=== PATIENT | female | born 1940 | race Caucasian/White ===

== ENCOUNTER 2017-11-05 11:45 | Emergency (ER) | payer MEDICARE, SELFPAY ==
[~2017-11-05] VITALS: Ht 162.6 cm; Wt 64.4 kg
[~2017-11-05 11:45] MED LIST: ALBU90OI6 INH; Amaryl4 MG PO; BUDE6HFA INH; CALGLU500; CENTRUM SILVER1 EAC2 PO; CENTRUM SILVER1 EAC3; CHOL10002 PO; Centrum Silver1 EAC1 PO; Cipro500 MG PO; DULO60 PO; ERGO400 PO; Flagyl500 MG PO; GABA300 PO; GABA300T24 PO; GLIM4 PO; HYDR1TAB94 PO; INSULANI SC; INSULANPEN SC; LISI5 PO; METF500 PO; MULVITA; Milk Of Ma400 MG/5 M PO; Multivitamin1 EAC1 PO; Norco 5-325 Ta1 EACH PO; OMEP20ER; OMEP20ER PO; ONDA8 PO; OXYC5 PO; Omeprazole20 M1 PO; SERT100 PO; VITAMIN B12-FO1 EACH PO; Ventolin Soln3 ML INH; Vitamin C100 MG PO; Zofran Odt4 MG SL
[2017-11-05 13:49] LABS: Hematocrit 38.8 % (33.0-51.0); Mean Corpuscular HGB 31.9 pg (26.0-34.0); Mean Corpuscular HGB Conc 33.5 g/dL (31.5-36.5); Mean Platelet Volume 9.4 fL (9.1-12.4); Platelet Count 181 K/mm3 (150-400); RDW Coefficient Variation 15.8 % (11.7-14.2); RDW Standard Deviation 54.4 fL (35.1-46.3); Red Blood Cell Count 4.07 M/mm3 (3.80-5.20); White Blood Cell Count 17.63 K/mm3 (4.00-11.30)
[2017-11-05 13:51] LABS: Mean Corpuscular Volume 95 fL (80-100)
[2017-11-05 14:11] LABS: Alanine Aminotransfer (ALT/SGP 14 U/L (12-78); Albumin, Blood 3.9 g/dL (3.4-5.0); Alk Phos 105 U/L (50-136); Anion Gap 14 mmol/L (6-16); Aspartate Aminotrans (AST/SGOT 22 U/L (12-37); Bilirubin, Total 0.9 mg/dL (0.1-1.0); Blood Urea Nitrogen 13 mg/dL (8-24); Bun/Creatinine Ratio 18.1 (12.0-20.0); CO2, Blood 22 mmol/L (21-32); Calcium, Blood 9.6 mg/dL (8.5-10.1); Chloride, Blood 102 mmol/L (98-108); Creatinine, Blood 0.72 mg/dL (0.40-1.00); Globulin, Blood 3.9 g/dL (2.2-4.0); Glomerular Filtration Rate >60 (60-); Glucose, Blood 180 mg/dL (70-99); Sodium, Blood 138 mmol/L (136-145); Total Protein, Blood 7.8 g/dL (6.4-8.2)
[2017-11-05 14:23] LABS: BASOPHILS PERCENT MAN 0 % (0-2); EOSINOPHILS PERCENT MAN 0 % (0-6); LYMPHOCYTES PERCENT MAN 4 % (21-46); MONOCYTES PERCENT MAN 0 % (4-13); NEUTROPHILS ABSOLUTE MAN 16.92 K/mm3 (1.96-9.15); SEG NEUTROPHILS PERCENT MAN 96 % (41-73); TOTAL CELLS COUNTED 100
[2017-11-05 14:27] LABS: Bilirubin, Urine Neg (Neg); Blood, Urine Neg (Neg); Glucose Qualitative, Urine Neg (Neg); Ketones, Urine 4+ (Neg); Leukocyte Esterase, Urine 1+ (Neg); Nitrite, Urine Neg (Neg); Protein, Urine 2+ (Neg); Urobilinogen, Urine NORM (Normal)
[2017-11-05 14:34] LABS: Appearance, Urine Clear (Clear); Color, Urine Yellow (P-Yellow)
[2017-11-05 14:36] LABS: Bacteria Few /hpf; Mucus Light (0-Heavy); Squamous Epithelial Cells Few /hpf (Few)
[2017-11-05] MEDS ORDERED: PHENERGAN25 MG PR (19:16)
[2017-11-05] MEDS ORDERED: Zofran Odt4 MG PO (19:16)
[2018-07-28] MEDS ORDERED: PROC5 PO (11:00)
[2018-07-28] MEDS ORDERED: CLOT10 MT (11:00)
[2018-07-29] MEDS ORDERED: Ferrous Sulfat325 M2 PO (15:14)
== END 2017-11-05 19:34 | disposition home or self-care (01) ==
LOC: ER 11:45
PROVIDERS: Emergency Medicine
DX: R11.2 Nausea with vomiting, unspecified (principal); T45.1X5A Adverse effect of antineoplastic and immunosuppressive drugs, initial encounter; K29.70 Gastritis, unspecified, without bleeding; E86.0 Dehydration; E11.9 Type 2 diabetes mellitus without complications; C19 Malignant neoplasm of rectosigmoid junction; Z88.6 Allergy status to analgesic agent; Z88.5 Allergy status to narcotic agent; Z79.4 Long term (current) use of insulin; Z79.899 Other long term (current) drug therapy; Z90.49 Acquired absence of other specified parts of digestive tract; Z90.710 Acquired absence of both cervix and uterus
CPT/HCPCS: 36415; 71046; 74177; 80053; 81001; 83605; 85025; 87040; 87086; 96361; 96374; 96375; 99284; J2405; J2550; J7030; Q9967

== ENCOUNTER 2019-08-14 07:39 | Day surgery (SDC) | payer MEDICARE, OTHER ==
[~2019-08-14] VITALS: Ht 160 cm; Wt 68.8 kg
[~2019-08-14 07:39] MED LIST changes: +CLOT10 MT; +Ferrous Sulfat325 M2 PO; +PHENERGAN25 MG PR; +PROC5 PO; +Zofran Odt4 MG PO
--- NOTE | 2019-08-14 10:48 | NUR ---
08/14/19 1048 Isreal Deleon DISCHARGE INSTRUCTIONS REVIEWED WITH PT AND DAUGHTER. PT INSTRUCTED SHE WOULD ONLY NEED PRN FOLLOW UP. SHE AGREES WITH THIS PLAN AND VERBALIZES UNDERSTANDING. VSS. TOLERATING PO FLUIDS WELL.
== END 2019-08-14 10:09 | disposition home or self-care (01) ==
LOC: ORSCSDS 07:39
PROVIDERS: Internal Medicine Gastroenterology
PROC: 0DJD8ZZ Inspection of Lower Intestinal Tract, Via Natural or Artificial Opening Endoscopic (ICD-10-PCS; principal; 2019-08-14 09:00)
DX: Z12.11 Encounter for screening for malignant neoplasm of colon (principal); Z85.038 Personal history of other malignant neoplasm of large intestine; K57.30 Diverticulosis of large intestine without perforation or abscess without bleeding; G47.30 Sleep apnea, unspecified; E11.9 Type 2 diabetes mellitus without complications; Z79.899 Other long term (current) drug therapy
CPT/HCPCS: 82947; J0330; J0461; J2405; J2704; J7120

== ENCOUNTER 2022-01-24 13:50 | Day surgery (SDC) | payer OTHER ==
[2022-01-24] MEDS ORDERED: LEVSOD75 PO (15:42)
[2022-01-24] MEDS ORDERED: POTA10T PO (15:43)
[2022-01-24] MEDS ORDERED: METF500 PO (15:43)
[2022-01-24] MEDS ORDERED: FURO20 PO (15:43)
[2022-01-24] MEDS ORDERED: OLAN2.5 PO (15:44)
[2022-01-24] MEDS ORDERED: XARELTO20 MG PO (15:45)
[2022-01-24] MEDS ORDERED: ALEN70 PO (15:45)
[2022-01-24] MEDS ORDERED: TRESIBA FL200 UNIT/2 SC (15:46)
== END 2022-01-24 18:28 | disposition home or self-care (01) ==
LOC: ATC 13:50
DX: C94.6 Myelodysplastic disease, not elsewhere classified (principal)
CPT/HCPCS: 36415; 86850; 86900; 86901; 86923; J1642; J7040; P9016

== ENCOUNTER 2022-01-29 21:03 | Inpatient (IN) | payer OTHER ==
[~2022-01-29] VITALS: Ht 160 cm; Wt 64.9 kg
[~2022-01-29 21:03] MED LIST changes: +ALEN70 PO; +FURO20 PO; +LEVSOD75 PO; +OLAN2.5 PO; +POTA10T PO; +TRESIBA FL200 UNIT/2 SC; +XARELTO20 MG PO
[2022-01-29 21:22] LABS: BASOPHILS ABSOLUTE AUTO 0.01 K/mm3 (0.00-0.23); BASOPHILS PERCENT AUTO 0 % (0-2); EOSINOPHILS ABSOLUTE AUTO 0.05 K/mm3 (0.00-0.68); EOSINOPHILS PERCENT AUTO 1 % (0-6); Hematocrit 28.4 % (33.0-51.0); Hemoglobin 8.5 g/dL (11.5-16.0); IMMATURE GRAN ABSOLUTE AUTO 0.05 K/mm3 (0.00-0.10); IMMATURE GRAN PERCENT AUTO 1 % (0-1); LYMPHOCYTES ABSOLUTE AUTO 1.32 K/mm3 (0.84-5.20); LYMPHOCYTES PERCENT AUTO 25 % (21-46); MONOCYTES ABSOLUTE AUTO 1.16 K/mm3 (0.16-1.47); MONOCYTES PERCENT AUTO 22 % (4-13); Mean Corpuscular HGB 28.5 pg (26.0-34.0); Mean Corpuscular HGB Conc 29.9 g/dL (31.5-36.5); Mean Corpuscular Volume 95 fL (80-100); Mean Platelet Volume 10.2 fL (9.1-12.4); NEUTROPHILS ABSOLUTE AUTO 2.77 K/mm3 (1.96-9.15); NEUTROPHILS PERCENT AUTO 52 % (41-73); NRBC ABSOLUTE 0.07 K/mm3 (0.00-0.02); NRBC Auto 1.3 /100 WBC (0.0-0.2); Platelet Count 189 K/mm3 (150-400); RDW Coefficient Variation 21.7 % (11.7-14.2); RDW Standard Deviation 73.6 fL (35.1-46.3); Red Blood Cell Count 2.98 M/mm3 (3.80-5.20); White Blood Cell Count 5.36 K/mm3 (4.00-11.30)
[2022-01-29 21:53] LABS: Albumin, Blood 2.5 g/dL (3.4-5.0); Albumin/Globulin Ratio 0.6 (0.8-1.8); Bun/Creatinine Ratio 19.4 (12.0-20.0); Calcium, Blood 8.4 mg/dL (8.5-10.1); Creatinine, Blood 1.65 mg/dL (0.40-1.00); Globulin, Blood 4.5 g/dL (2.2-4.0); Potassium, Blood 5.9 mmol/L (3.5-5.5)
[2022-01-29 22:24] LABS: PCO2 Venous 36.7 mmHg (38-42); pH Blood Venous 7.42 (7.34-7.37)
[2022-01-29 22:25] LABS: Base Excess Venous -0.6 mmol/L; Bicarbonate Venous 24.1 mmol/L (24.0-30.0); PO2 Venous 135 mmHg (38-42)
[2022-01-29 22:56] LABS: Influenza A, PCR NEGATIVE (NEGATIVE); Influenza B, PCR NEGATIVE (NEGATIVE); Resp Syncytial Virus, PCR NEGATIVE (NEGATIVE); SARS-Cov-2 (COVID-19) PCR, MMC NEGATIVE (NEGATIVE)
[2022-01-30 01:15] LABS: BASOPHILS ABSOLUTE AUTO 0.02 K/mm3 (0.00-0.23); BASOPHILS PERCENT AUTO 1 % (0-2); EOSINOPHILS ABSOLUTE AUTO 0.01 K/mm3 (0.00-0.68); EOSINOPHILS PERCENT AUTO 0 % (0-6); Hematocrit 26.9 % (33.0-51.0); Hemoglobin 8.2 g/dL (11.5-16.0); IMMATURE GRAN ABSOLUTE AUTO 0.04 K/mm3 (0.00-0.10); IMMATURE GRAN PERCENT AUTO 1 % (0-1); LYMPHOCYTES PERCENT AUTO 17 % (21-46); MONOCYTES ABSOLUTE AUTO 0.56 K/mm3 (0.16-1.47); MONOCYTES PERCENT AUTO 14 % (4-13); Mean Corpuscular HGB 28.6 pg (26.0-34.0); Mean Corpuscular HGB Conc 30.5 g/dL (31.5-36.5); Mean Corpuscular Volume 94 fL (80-100); NEUTROPHILS PERCENT AUTO 68 % (41-73); NRBC ABSOLUTE 0.05 K/mm3 (0.00-0.02); NRBC Auto 1.2 /100 WBC (0.0-0.2); Platelet Count 177 K/mm3 (150-400); RDW Standard Deviation 73.5 fL (35.1-46.3); Red Blood Cell Count 2.87 M/mm3 (3.80-5.20); White Blood Cell Count 4.13 K/mm3 (4.00-11.30)
[2022-01-30 01:40] LABS: Bun/Creatinine Ratio 19.9 (12.0-20.0); Calcium, Blood 8.4 mg/dL (8.5-10.1); Creatinine, Blood 1.71 mg/dL (0.40-1.00); Potassium, Blood 5.9 mmol/L (3.5-5.5)
--- NOTE | 2022-01-30 06:55 | NUR ---
NOC SHIFT SUMMARY PT ARRIVED TO UNIT @ 0031 FROM ED WITH DAUGHTER ROMA AND ED STAFF. SLID TO STRETCHER WITH STAFF ASSIST. CPAP SET UP PER RT. VITALS OBTAINED. PT ORIENTED TO ROOM AND CALL LIGHT. NO COMPLAINTS OF PAIN. SPOKE WITH - DR OLIVO OVERNIGHT REGARDING LOW MAPS OF 53-59. OTHER VSS. PT STATES ASYMPTOMATIC BUT COLD SWEAT NOTED BY THIS RN. ORDERS RECEIVED FOR 250 BOLUS X2, AND MIDODRINE X1 (SEE EMAR FOR DETAILS). IMPROVEMENT THIS AM TO MAP OF 67. 0600 UPDATE - PT HAD NOT VOIDED THIS SHIFT. BLADDER SCAN SHOWS 850ML. NOTIFIED DR. OLIVO AND DAVIS CATHETER PLACED. PT TOLERATED WELL.
--- NOTE | 2022-01-30 08:30 | NUR ---
AM ASSESSMENT: Pt laying in bed with CPAP in place. Pt A/O x4 at this time. Denies pain, states that she is feeling some SOB but that this has improved since last noc. Requesting to come off of CPAP. Placed on 4L N/C. Tolerating well. LS with coarse and crackles throughout. HR reg. BT positive. Abd very distended with ascities noted. +2 edema noted to BLE. Rodriguez cath draining dark, iris urine. VSS. Call light in reach. Will continue to monitor.
[2022-01-30 09:52] LABS: International Normalized Ratio 1.16; Prothrombin Time Results 12.1 Sec (9.7-11.5)
--- NOTE | 2022-01-30 18:09 | NUR ---
SHIFT SUMMARY: Pt resting in bed. Denies needs. Visitor at bedside. Pt has done well this shift. Was able to titrate O2 down to RA. At RA Pt sats were at 90-92%. Placed back on 2L per NC and pt Biox 96-100%. States she is more comfortable with oxygen on. Pt had a paracentisis today with approx. 5L removed. Albumin given per orders. VSS throughout shift. Rodriguez cath continued to drain iris urine. Pt had multiple unformed, incontinent BM's that were garduno/brown in color. No other changes this shift. Will report to night RN.
[2022-01-31 04:42] LABS: BASOPHILS PERCENT AUTO 0 % (0-2); EOSINOPHILS PERCENT AUTO 0 % (0-6); Hematocrit 24.9 % (33.0-51.0); Hemoglobin 7.6 g/dL (11.5-16.0); IMMATURE GRAN ABSOLUTE AUTO 0.06 K/mm3 (0.00-0.10); IMMATURE GRAN PERCENT AUTO 2 % (0-1); LYMPHOCYTES ABSOLUTE AUTO 0.48 K/mm3 (0.84-5.20); LYMPHOCYTES PERCENT AUTO 14 % (21-46); MONOCYTES ABSOLUTE AUTO 0.42 K/mm3 (0.16-1.47); MONOCYTES PERCENT AUTO 12 % (4-13); Mean Corpuscular HGB 28.4 pg (26.0-34.0); Mean Corpuscular HGB Conc 30.5 g/dL (31.5-36.5); Mean Corpuscular Volume 93 fL (80-100); Mean Platelet Volume 10.1 fL (9.1-12.4); NEUTROPHILS ABSOLUTE AUTO 2.44 K/mm3 (1.96-9.15); NEUTROPHILS PERCENT AUTO 72 % (41-73); NRBC ABSOLUTE 0.07 K/mm3 (0.00-0.02); NRBC Auto 2.1 /100 WBC (0.0-0.2); Platelet Count 147 K/mm3 (150-400); RDW Coefficient Variation 21.8 % (11.7-14.2); RDW Standard Deviation 72.6 fL (35.1-46.3); Red Blood Cell Count 2.68 M/mm3 (3.80-5.20)
[2022-01-31 05:14] LABS: Bun/Creatinine Ratio 29.9 (12.0-20.0); Calcium, Blood 8.5 mg/dL (8.5-10.1); Creatinine, Blood 1.37 mg/dL (0.40-1.00); Potassium, Blood 4.9 mmol/L (3.5-5.5); Thyroxine (T4) 7.4 ug/dL (4.8-13.9)
--- NOTE | 2022-01-31 05:45 | NUR ---
NOC SHIFT SUMMARY PT SLEPT WELL OVERNIGHT, ORIENTED X4. VSS PER PT TREND. ON 2L NC. DAVIS DRAINING DARK YELLOW/BOGDAN URINE. ADEQUATE OUTPUT. PARACENTESIS SITE CDI WITH BANDAID IN PLACE. SR ON TELEMETRY. NO COMPLAINTS OF PAIN. WILL CONTINUE TO MONITOR AND PASS ON TO DAY RN
--- NOTE | 2022-01-31 09:49 | NUR ---
PT PLACED ON BIPAP WITH 2L DUE COMPLAINTS OF SOB, INCREASED WORK OF BREATHING AND CO OF BECOMING TIRED. RT NOTIFIED AND THEN CAME IN TO ASSESS BIPAP SETTINGS. PT HR DECREASED AND SATS IMPROVED AFTER APPLICATION.
--- NOTE | 2022-01-31 20:46 | NUR ---
ASSUMPTION OF CARE: PATIENT WATCHING TV WITH O2 SATS >94% ON 2L NC. DENIES SOB OR CHEST PAIN, DENIES NEEDS AT THIS TIME. DAVIS DRAINING YELLOW URINE TO GRAVITY. DAVIS CLAMPED AT 2030 TO INITIATE BLADDER TRAINING IN ANTICIPATION OF D/C'ING IN A DAY OR TWO. MEDICATED PER EMAR WITH PLANS TO WEAR CPAP FOR SLEEP.
[2022-02-01 04:13] LABS: Hematocrit 26.4 % (33.0-51.0); Hemoglobin 8.1 g/dL (11.5-16.0); Mean Corpuscular HGB 28.2 pg (26.0-34.0); Mean Corpuscular HGB Conc 30.7 g/dL (31.5-36.5); Mean Corpuscular Volume 92 fL (80-100); Mean Platelet Volume 10.1 fL (9.1-12.4); NRBC ABSOLUTE 0.07 K/mm3 (0.00-0.02); NRBC Auto 1.6 /100 WBC (0.0-0.2); Platelet Count 143 K/mm3 (150-400); RDW Coefficient Variation 21.9 % (11.7-14.2); RDW Standard Deviation 71.5 fL (35.1-46.3); Red Blood Cell Count 2.87 M/mm3 (3.80-5.20); White Blood Cell Count 4.48 K/mm3 (4.00-11.30)
[2022-02-01 04:28] LABS: Bun/Creatinine Ratio 33.3 (12.0-20.0); Calcium, Blood 8.4 mg/dL (8.5-10.1); Creatinine, Blood 1.29 mg/dL (0.40-1.00); Potassium, Blood 4.8 mmol/L (3.5-5.5)
--- NOTE | 2022-02-01 05:41 | NUR ---
SHIFT SUMMARY: PATIENT MAINTAINED O2 SATS >94% ON 2L NC. DENIES CHEST PAIN. HAS OCCASIONAL SOB WITH COUGHING SPELLS. INITIATED BLADDER TRAINING - OUTPUT ~200 ML Q2 HRS. PATIENT IN BED WITH BIPAP IN PLACE WITH 2L BLEED IN. BED LOW AND CALL LIGHT IN REACH. PATIENT PLEASANT AND COOPERATIVE WITH CARE. NO ADVERSE EVENTS THIS SHIFT. WILL CONTINUE TO MONITOR AND REPORT TO ONCOMING RN.
--- NOTE | 2022-02-01 17:18 | NUR ---
SHIFT SUMMARY NO ACUTE CHANGES NOTED THROUGH THE DAY. PT HAS BEEN AWAKE, A&O X4. VSS, PT WAS ABLE TO AMBULATE IN THE [place]INTERS X1 WITH STAND BY ASSISTANCE USING FWW & 2L O2 VIA NC, PT THEN SAT AT THE BEDSIDE FOR APPROX 1 HOUR. AFTER RESTING PT WAS BACK UP TO BEDSIDE CHAIR FOR DINNER. LUNGS REMAIN COARSE/WHEEZE BILATERAL, NONPRRODECTIVE COUGH, SPO2 >96%. BLADDER TRAINING THROUGH THE DAY, DAVIS CLAMPED AT THIS TIME, 600 MLS CLEAR YELLOW URINE NOTED IN DAVIS, CALL LIGHT IN REACH. WCTM & REPORT TO NOC RN
--- NOTE | 2022-02-02 05:42 | NUR ---
SHIFT SUMMARY A/O X4 THROUGHOUT SHIFT. VITAL SIGNS STABLE. ON 2L NC TO KEEP O2 SATURATION ABOVE 90%. NO REPORTS OF PAIN THROUGHOUT SHIFT. SOB ON EXERTION. DAVIS REMOVED AT APPROX 0200, IMMEDIATE POST VOID OF 400ML. SBA TO BSC. PLEASANT AND COOPERTIVE W/ CARE. WILL CONTINUE TO MONITOR AND REPORT TO ONCOMING RN.
[2022-02-02] MEDS ORDERED: SPIR25 PO (09:53)
--- NOTE | 2022-02-02 18:19 | NUR ---
SHIFT SUMMARY: NO ACUTE CHANGES T/OUT SHIFT. PT A&Ox4, O2 SATS MAINTAINED >92% ON 1 L/MIN VIA NC, CONGESTED COUGH, DENIES PRODUCTION OF SPUTUM. PT DENIES SOB, CP T/OUT SHIFT. INDWELLING DAVIS REMOVED ON NOC SHIFT. PT SBA TO BSC, HAS BEEN VOIDING W/OUT DIFFICULTY. CALL LIGHT AT BEDSIDE. WILL CONTINUE TO MONITOR AND TREAT ACCORDINGLY UNTIL CHANGE OF SHIFT.
--- NOTE | 2022-02-03 00:56 | NUR ---
REPORT RECIEVED FROM BIANCA (E TAILER) AND AWAITING PT T/F TO ROOM 360.
--- NOTE | 2022-02-03 01:20 | NUR ---
TRANSFER OF CARE TO DENISA RN UPON PATIENT TRANSFER VIA BED TO ROOM 360.
--- NOTE | 2022-02-03 01:23 | NUR ---
PT T/F TO ROOM 360 AT 0115 AND SHE WAS ORIENTED TO NEW ROOM AND CALL SYSTEM. SHE DENIES NEEDS AND ALL COMPLAINTS/CONCERNS. THIS RN AGREES TO VP BIOLOGY'S SHIFT ASSESSMENT FINDINGS. CALL LIGHT IN REACH. WCTM AND ASSIST PRN.
--- NOTE | 2022-02-03 03:33 | NUR ---
SUMMARY: PT A/OX4, CALLS APPROPRIATELY TO SPECIFY NEEDS AND IS PLEASANT AND COOPERATIVE W/CARE. SHE REMAINS ON 1L O2 W/SPO2 WNL AND IS SOB W/EXERTION. OCCASIONAL COUGHING FITS OBSERVED BUT NO PRN MEDS REQUIRED SINCE ARRIVAL FROM PCU. ABDO IS MILDLY DISTENDED BUT PT DENIES NAUSEA OR PAIN. PT UP W/SBA TO BSC. NO ACUTE CHNAGES, VSS/AFEBRILE. WCTM AND REPORT TO DAY RN.
[2022-02-03] MEDS ORDERED: PRED20 PO (14:05)
--- NOTE | 2022-02-03 15:35 | NUR ---
DISCHARGE SUMMARY PT A/O X4; PLEASANT AND COOPERATIVE WITH CARE. HOWEVER, PT SEEMS TO BE SLIGHTLY WITHDRAWN DUE TO LEARNING THAT HER CANCER MAY HAVE RETURNED. UP TO THE BATHROOM WITH A STAND BY ASSIST. BREATHING HAS IMPROVED SOME THIS SHIFT AND PT HAS BEEN WEANED OFF O2. DC'D HOME AND INSTRUCTED TO FOLLOW UP WITH DR. BARNES AND PCP.
== END 2022-02-03 15:34 | disposition home or self-care (01) | DRG 189 ==
LOC: ER 21:03 → PCU 23:13 → MEDS 02-03 01:16
PROVIDERS: Emergency Medicine; Internal Medicine; ADMIT Family Medicine
DX: J96.01 Acute respiratory failure with hypoxia (principal); N17.9 Acute kidney failure, unspecified; E87.1 Hypo-osmolality and hyponatremia; J44.1 Chronic obstructive pulmonary disease with (acute) exacerbation; J44.0 Chronic obstructive pulmonary disease with (acute) lower respiratory infection; R18.0 Malignant ascites; J44.9 Chronic obstructive pulmonary disease, unspecified; Z20.822 Contact with and (suspected) exposure to COVID-19; I50.9 Heart failure, unspecified; K21.9 Gastro-esophageal reflux disease without esophagitis; E03.9 Hypothyroidism, unspecified; G47.30 Sleep apnea, unspecified; F32.A Depression, unspecified; E55.9 Vitamin D deficiency, unspecified; E78.5 Hyperlipidemia, unspecified; E11.22 Type 2 diabetes mellitus with diabetic chronic kidney disease; N18.30 Chronic kidney disease, stage 3 unspecified; R33.9 Retention of urine, unspecified; E87.5 Hyperkalemia; Z96.611 Presence of right artificial shoulder joint; Z90.49 Acquired absence of other specified parts of digestive tract; Z90.710 Acquired absence of both cervix and uterus; Z98.890 Other specified postprocedural states; Z85.038 Personal history of other malignant neoplasm of large intestine; Z88.5 Allergy status to narcotic agent; Z88.6 Allergy status to analgesic agent; Z88.8 Allergy status to other drugs, medicaments and biological substances; Z79.4 Long term (current) use of insulin; Z79.01 Long term (current) use of anticoagulants; Z79.899 Other long term (current) drug therapy
CPT/HCPCS: 0241U; 36415; 49083; 51702; 71045; 80048; 80053; 82565; 82803; 82947; 83605; 83880; 84145; 84436; 84484; 85025; 85027; 85610; 85730; 87040; 87070; 87086; 87205; 93005; 93010; 94640; 94660; 94664; 94760; 94761; 94762; 96374; 96375; 99285-25; A9270; J0456; J0610; J0696; J1650; J1815; J2405; J2920; J2930; J7030; J7040; J7050; J7060; J7512; P9046

== ENCOUNTER 2022-03-03 13:33 | Day surgery (SDC) | payer OTHER ==
[~2022-03-03 13:33] MED LIST changes: +PRED20 PO; +SPIR25 PO
== END 2022-03-03 22:53 | disposition home or self-care (01) ==
LOC: US 13:33
DX: R18.8 Other ascites (principal); Z85.038 Personal history of other malignant neoplasm of large intestine
CPT/HCPCS: 49083

== ENCOUNTER 2022-03-12 14:28 | Day surgery (SDC) | payer OTHER | END 2022-03-12 23:32 | disposition home or self-care (01) | LOC: US 14:28 | DX: R18.8 Other ascites (principal); Z85.038 Personal history of other malignant neoplasm of large intestine | CPT/HCPCS: 76705 ==

== ENCOUNTER 2022-03-26 09:44 | Day surgery (SDC) | payer OTHER | END 2022-03-26 22:36 | disposition home or self-care (01) | LOC: US 09:44 | DX: R18.8 Other ascites (principal) | CPT/HCPCS: 49083 ==

== ENCOUNTER → 2022-03-30 | Outpatient (CLI) | payer OTHER ==
[2022-03-30 14:29] LABS: Hematocrit 27.7 % (33.0-51.0); Hemoglobin 8.6 g/dL (11.5-16.0); Mean Corpuscular HGB 28.6 pg (26.0-34.0); Mean Corpuscular Volume 92 fL (80-100); NRBC ABSOLUTE 0.17 K/mm3 (0.00-0.02); NRBC Auto 4.4 /100 WBC (0.0-0.2); Platelet Count 132 K/mm3 (150-400); RDW Coefficient Variation 25.6 % (11.7-14.2); RDW Standard Deviation 85.6 fL (35.1-46.3); Red Blood Cell Count 3.01 M/mm3 (3.80-5.20); White Blood Cell Count 3.83 K/mm3 (4.00-11.30)
[2022-03-30 14:52] LABS: Albumin, Blood 2.1 g/dL (3.4-5.0); Albumin/Globulin Ratio 0.5 (0.8-1.8); Bilirubin, Total 0.8 mg/dL (0.1-1.0); Bun/Creatinine Ratio 28.2 (12.0-20.0); Calcium, Blood 8.7 mg/dL (8.5-10.1); Creatinine, Blood 1.42 mg/dL (0.40-1.00); Globulin, Blood 4.3 g/dL (2.2-4.0); Potassium, Blood 4.3 mmol/L (3.5-5.5); Total Protein, Blood 6.4 g/dL (6.4-8.2)
[2022-03-30 18:22] LABS: BAND PERCENT MAN 3 % (0-8); BASOPHILS PERCENT MAN 0 % (0-2); BLASTS PERCENT MAN 2 % (0-0); EOSINOPHILS PERCENT MAN 0 % (0-6); LYMPHOCYTES ABSOLUTE MAN 1.03 K/mm3 (0.84-5.20); LYMPHOCYTES PERCENT MAN 27 % (21-46); METAMYELOCYTE ABSOLUTE MAN 0.07 K/mm3 (0.00-0.00); METAMYELOCYTE PERCENT MAN 2 % (0-0); MONOCYTES ABSOLUTE MAN 0.26 K/mm3 (0.16-1.47); MONOCYTES PERCENT MAN 7 % (4-13); MYELOCYTE ABSOLUTE MAN 0.11 K/mm3 (0.00-0.00); MYELOCYTE PERCENT MAN 3 % (0-0); NEUTROPHILS ABSOLUTE MAN 2.25 K/mm3 (1.96-9.15); SEG NEUTROPHILS PERCENT MAN 56 % (41-73); TOTAL CELLS COUNTED 100
== END | disposition home or self-care (01) ==
LOC: LAB 13:55 → LAB SHORT 13:55
PROVIDERS: Registered Nurse Oncology
DX: C80.1 Malignant (primary) neoplasm, unspecified (principal)
CPT/HCPCS: 80053; 85025

== ENCOUNTER 2022-03-31 13:32 | Day surgery (SDC) | payer OTHER | END 2022-03-31 23:58 | disposition home or self-care (01) | LOC: US 13:32 | DX: C18.9 Malignant neoplasm of colon, unspecified (principal); R18.0 Malignant ascites | CPT/HCPCS: 49083 ==

== ENCOUNTER → 2022-04-07 | Day surgery (SDC) | payer OTHER | LOC: US 13:33 | DX: R18.8 Other ascites (principal); Z85.038 Personal history of other malignant neoplasm of large intestine | CPT/HCPCS: 49083 ==

== ENCOUNTER 2022-04-14 13:33 | Day surgery (SDC) | payer OTHER | END 2022-04-14 22:48 | disposition home or self-care (01) | LOC: US 13:33 | DX: R18.8 Other ascites (principal); Z85.038 Personal history of other malignant neoplasm of large intestine | CPT/HCPCS: 49083 ==